=== PATIENT | male | born 1975 | race Caucasian/White ===

== ENCOUNTER 2017-08-28 22:03 | Emergency (ER) | payer SELFPAY, OTHER, MEDICAID ==
[2017-08-29 00:28] LABS: ADD UMIC NO; UR ASCORBIC ACID NEGATIVE (NEGATIVE); UR BACTERIA FEW /HPF (NONE SEEN); UR BILIRUBIN (Dip) NEGATIVE (NEGATIVE); UR BLOOD (Dip) NEGATIVE (NEGATIVE); UR CLARITY SLIGHTLY CLOUDY (CLEAR); UR COLOR YELLOW (YELLOW); UR GLUCOSE (Dip) NEGATIVE (NEGATIVE); UR KETONES (Dip) NEGATIVE (NEGATIVE); UR LEUKOCYTE ESTERASE (Dip) NEGATIVE Leu/ul (NEGATIVE); UR NITRITE (Dip) NEGATIVE (NEGATIVE); UR RBC 1 /HPF (0-5); UR SPECIFIC GRAVITY (Dip) 1.017 (1.003-1.030); UR TOTAL PROTEIN (Dip) NEGATIVE (NEGATIVE); UR UROBILINOGEN (Dip) 2+ mg/dL (NEGATIVE); UR WBC 1 /HPF (0-5)
[2017-08-29] MEDS: AZITHROMYCIN 250 MG TAB PO (00:52)
[2017-08-29] MEDS: CEFTRIAXONE 250 MG INJ IM (00:53)
== END 2017-08-29 00:58 | disposition home or self-care (01) ==
LOC: FTE 08-29 00:58
DX: L40.9 Psoriasis, unspecified (principal); R30.0 Dysuria
CPT/HCPCS: 81001; 81003; 96372; 99284-25

== ENCOUNTER 2017-09-04 22:22 | Emergency (ER) | payer MEDICAID | END 2017-09-05 02:48 | disposition home or self-care (01) | LOC: FTE 22:22 | DX: R21 Rash and other nonspecific skin eruption (principal) | CPT/HCPCS: 99284; Z7502 ==

== ENCOUNTER 2019-01-13 00:46 | Emergency (ER) | payer SELFPAY, MEDICAID ==
[2019-01-13 01:31] LABS: URINE BLOOD (Dip) POC Trace-intact (NEGATIVE); URINE KETONES (Dip) POC Negative (NEGATIVE); URINE LEUKOCYTE EST (Dip) POC Negative (NEGATIVE); URINE NITRITE (Dip) POC Negative (NEGATIVE); URINE TOTAL PROTEIN POC Negative (NEGATIVE)
[2019-01-13 01:31] LABS: URINE PH (Dip) POC 6.5 (5.0-8.5)
[2019-01-13] MEDS: CEFTRIAXONE 250 MG INJ IM (02:22)
[2019-01-13] MEDS: AZITHROMYCIN 500 MG TAB PO (02:22)
[2019-01-13 02:36] LABS: ADD UMIC NO; UR ASCORBIC ACID NEGATIVE (NEGATIVE); UR BILIRUBIN (Dip) NEGATIVE (NEGATIVE); UR BLOOD (Dip) NEGATIVE (NEGATIVE); UR CLARITY CLEAR (CLEAR); UR COLOR YELLOW (YELLOW); UR GLUCOSE (Dip) 3+ mg/dL (NEGATIVE); UR KETONES (Dip) NEGATIVE (NEGATIVE); UR LEUKOCYTE ESTERASE (Dip) NEGATIVE Leu/ul (NEGATIVE); UR NITRITE (Dip) NEGATIVE (NEGATIVE); UR TOTAL PROTEIN (Dip) NEGATIVE (NEGATIVE); UR UROBILINOGEN (Dip) 2+ mg/dL (NEGATIVE)
== END 2019-01-13 02:44 | disposition home or self-care (01) ==
LOC: FTE 00:46
DX: N48.1 Balanitis (principal); A64 Unspecified sexually transmitted disease
CPT/HCPCS: 81003; 87086; 87591; 96372; 99284-25